=== PATIENT | male | born 1975 | race African-American/Black ===

== ENCOUNTER 2019-07-10 10:59 | Emergency (ER) | payer OTHER ==
[~2019-07-10] VITALS: Ht 193 cm; Wt 111.1 kg
[2019-07-10] MEDS ORDERED: BACLOFEN 10 MG TAB PO ONE (13:30)
[2019-07-10] MEDS ORDERED: KETOROLAC TROMETH 60MG/2ML VIAL IM ONE (13:30)
[2019-07-10 14:45] VITALS: BP 116/72
== END 2019-07-10 15:08 | disposition home or self-care (01) ==
LOC: ER 10:59
DX: M62.838 Other muscle spasm (principal); M25.512 Pain in left shoulder; M25.561 Pain in right knee; V89.2XXA Person injured in unspecified motor-vehicle accident, traffic, initial encounter; Y93.I9 Activity, other involving external motion; Y92.410 Unspecified street and highway as the place of occurrence of the external cause; Y99.8 Other external cause status
CPT/HCPCS: 72040; 72070; 96372; 99283; J1885